=== PATIENT | male | born 1950 | race Caucasian/White ===

== ENCOUNTER 2017-08-16 12:40 | Outpatient (CLI) | payer MEDICARE ==
[2017-08-16 14:47] LABS: Mean Corpuscular HGB CONC 33.6 g/dL (32.0-36.0); Mean Corpuscular Volume 95.4 fl (80.0-94.0); Mean Platelet Volume 7.9 fL (7.4-10.4); Platelet Count 207 thou/uL (130-400); RBC Distribution Width 12.6 % (11.5-14.5); White Blood Cell (WBC) Count 10.6 thou/uL (4.8-10.8)
[2017-08-16 14:49] LABS: Bilirubin Negative (Negative); Blood, Urine Negative (Negative); Clarity CLEAR (Clear); Glucose, Urine (Dipstick) Negative (Negative); Leukocyte Negative (Negative); Nitrite Negative (Negative); Protein, Urine (Dipstick) Negative (Neg-Trace); Specific Gravity, Urine 1.025 (1.002-1.036); Urobilinogen 0.2 mg/dL (0.2-1.0); pH, Urine 5.5 (5.0-9.0)
[2017-08-16 14:52] LABS: Bacteria/HPF None Seen HPF (None Seen); Hyaline Casts/LPF 0-3 HYALINE CAST LPF (0-3 Hyaline); Squamous Epithelial None Seen HPF (0-3); WBC/HPF 0-3 HPF (0-3)
[2017-08-16 14:58] LABS: PTT 33.6 SEC (22.9-36.1); Prothrombin Time 13.3 SEC (12.0-14.7)
[2017-08-16 15:08] LABS: Anion Gap 14 mmol/L (10-20); BUN (Urea Nitrogen) 26 mg/dL (8.4-25.7); Calc. Creatinine Clearance 0 mL/min (70-130); Calcium 10.5 mg/dL (7.8-10.44); Carbon Dioxide 27 mmol/L (23-31); Chloride 102 mmol/L (98-107); Estimated GFR-MDRD 71; Glucose 86 mg/dL (80-115); Potassium 4.3 mmol/L (3.5-5.1); Sodium 139 mmol/L (136-145)
--- NOTE | 2017-08-16 15:37 | ULT ---
BILATERAL SCROTAL ULTRASOUND INCLUDING COLOR AND SPECTRAL DOPPLER IMAGIN08/16/17 HISTORY: 67-year-old male with left sided hydrocele. Right testis measures 4.7 x 2.6 x 3.8 cm. The left testis measures 5.1 x 3.4 x 4.1 cm. The epididymal regions are not seen. There is a very large left sided hydrocele incompletely seen because of its large size but measuring at least 9 cm in diameter. There is a small right sided hydrocele up to approximately 5 cm in length. No intratesticular mass. No evidence for testicular torsion. IMPRESSION: Very large left sided hydrocele. Smaller right sided hydrocele. No intratesticular mass or testicular torsion. POS: [facility]
--- NOTE | 2017-08-21 20:11 | EKG ---
Test Reason : Blood Pressure : / mmHG Vent. Rate : 074 BPM Atrial Rate : 074 BPM P-R Int : 160 ms QRS Dur : 092 ms QT Int : 364 ms P-R-T Axes : 068 082 035 degrees QTc Int : 404 ms Normal sinus rhythm Possible Anterior infarct , age undetermined Abnormal ECG When compared with ECG of 22-JUL-2013 09:49, No significant change was found Confirmed by BEAU MUNOZ (2) on 08/21/2017 8:11:21 PM Referred By: JAC Confirmed By:BEAU MUNOZ
== END 2017-08-16 12:41 | disposition home or self-care (01) ==
LOC: ULT 12:40
PROVIDERS: ATTEND Urology
DX: N43.3 Hydrocele, unspecified (principal); N44.00 Torsion of testis, unspecified
CPT/HCPCS: 76870; 80048; 81001; 85027; 85610; 85730; 87086; 93005; 93976; G0103; 93010

== ENCOUNTER 2017-08-23 08:20 | Day surgery (SDC) | payer MEDICARE ==
[2017-08-16 14:06] VITALS: BMI 25.1
[2017-08-23] MEDS ORDERED: CEFAZOLIN/Water 2 GM/20 ML SYRINGE ONE (09:45)
[2017-08-23] MEDS ORDERED: Bupivacaine 0.25% HCL 30 ML VIAL ONE ×2 (11:05→11:06)
[2017-08-23] MEDS ORDERED: Fentanyl 250 MCG/5 ML VIAL ONE ×2 (11:12→12:15)
[2017-08-23] MEDS ORDERED: HYDROmorphone 0.5 MG/0.5 ML SYRINGE ONE (12:15)
--- NOTE | 2017-08-23 13:29 | OP ---
DATE OF PROCEDURE: 08/23/2017 SERVICE: Urology. SURGEON: Iglesia Owens M.D. PREOPERATIVE DIAGNOSIS: Left hydrocele. POSTOPERATIVE DIAGNOSES: Left hydrocele and epididymal cyst. PROCEDURES PERFORMED: Left hydrocelectomy and spermatocelectomy. INDICATIONS FOR PROCEDURE: Mr. Calloway is a 67-year-old white male who presented to me with a signifi cant left-sided scrotal swelling. He has had a spermatocelectomy on the right. The left side has no w become significantly swollen and is bothering the patient, interfering with his daily activities. He would like this removed. An ultrasound done previously was negative. I have talked about the ris ks and benefits of hydrocelectomy and he agreed to proceed forward. DESCRIPTION OF PROCEDURE: After identification of armband and verification of consent, the patient w as brought back to the operating room where he underwent general anesthesia with an LMA. He was left in the supine position and prepped and draped in the usual sterile fashion. After appropriate timeo ut, a horizontal incision was made over the left hemiscrotum using a 15 blade. Dissection was maria esther d down with Bovie electrocautery and Metzenbaum scissors through dartos in the internal and external spermatic fascia to the level of the tunica vaginalis. Dissection was carried out along the hydrocel e sac with blunt dissection circumferentially around the hydrocele to allow for delivery of the hydro david through the scrotal incision. Once the hydrocele was delivered, the additional spermatic fascia s were swept back to allow for complete exposure of the hydrocele and cord. The hydrocele sac was th en opened on the anterior surface with release of approximately 400-500 mL of straw-colored fluid. T he interior constant did not demonstrate any abnormalities of the testicle or any other foreign subst ances within the hydrocele sac. After opening the hydrocele sac, there was apparent bulge still pres ent on the posterior side of the cord and testicle opposite the hydrocele. Upon closer inspection, t his appeared to be an epididymal cyst growing up the head of the epididymis. It was moderate in size and could potentially grow significantly larger in the future. Therefore, I elected to go ahead and remove this as well, so the patient would have maximum amount of drainage. The spermatocele was sig nificantly fused to the cord vessels, vas deferens and epididymis and I felt that attempting to disse ct the spermatocele may result in significant morbidity or loss of the testicle altogether due to dam age to the vascular structures. Therefore, I elected to just open the epididymal cyst in a similar f ashion of the hydrocele and this russell the edges for marsupialization and prevent recurrence. This w as done with a 15 blade with release of approximately 50 mL of straw-colored fluid. The edges were c auterized. The hydrocele sac was then excised in the Jaboulay fashion for complete removal of the hy drocele sac. Care was taken not to injure the epididymis, although the incision line was close to th e epididymis. There was not enough hydrocele sac left to russell the edges. Therefore, the edges were just sewn, shut for hemostasis using a 4-0 Vicryl in a running fashion. The epididymal leaflets of that were everted using a 2-0 Vicryl in an interrupted fashion. Hemostasis was then performed on the inside of the scrotal sac along with the testis and spermatic cord until the entire surgical field w as completely dry, a small incision was made on the inferior aspect of the scrotum for passage of a q uarter-inch Karissa drain, which was secured with nylon. The wound was copiously irrigated with sali ne and then once the fluid evacuated, the testicle was put back into the scrotal sac. A cord block w as performed with 0.25% Marcaine plain and the dartos and spermatic fascia was then closed using a 2- 0 Vicryl in a running fashion. The skin was closed with a 4-0 Monocryl and Dermabond applied. The i ncision was infiltrated with 0.25% Marcaine plain as well. Once the Dermabond was dry, scrotal fluff s and a jockstrap was applied. The patient was then awakened and taken to PACU for recovery in stabl e condition. COMPLICATIONS: None. ESTIMATED BLOOD LOSS: Minimal. RETAINED TUBES AND DRAINS: A quarter-inch Karissa drain in the left. SPECIMENS: Hydrocele sac and epididymal cyst sac. DISPOSITION: The patient will be discharged home and follow up with me in 1 week for drain removal.
== END 2017-08-23 17:50 | disposition home or self-care (01) ==
LOC: SDC 08:20
PROVIDERS: ATTEND Urology
PROC: 0VBG0ZZ Excision of Left Spermatic Cord, Open Approach (ICD-10-PCS; principal; 2017-08-23)
PROC: 0VBK0ZZ Excision of Left Epididymis, Open Approach (ICD-10-PCS; 2017-08-23)
DX: N43.3 Hydrocele, unspecified (principal); N50.3 Cyst of epididymis; K21.9 Gastro-esophageal reflux disease without esophagitis; M19.90 Unspecified osteoarthritis, unspecified site; F17.210 Nicotine dependence, cigarettes, uncomplicated; Z79.82 Long term (current) use of aspirin; Z79.899 Other long term (current) drug therapy; Z91.030 Bee allergy status; Z98.890 Other specified postprocedural states
CPT/HCPCS: 88302; 88304; J1170; J3010; S0020

== ENCOUNTER 2019-02-09 12:47 | Inpatient (IN) | payer MEDICARE ==
[~2019-02-09 12:47] MED LIST: ISOVUE-370 76%-LOCM 1 ML ONE
--- NOTE | 2019-02-09 13:06 | CT ---
Exam: CT brain PROVIDED CLINICAL HISTORY: Confusion COMPARISON: None FINDINGS: The ventricular system is normal in size and morphology. No evidence for intracranial hemorrhage or mass effect. The extracranial soft tissues and osseous structures demonstrate no evidence for an acute abnormality. Bilateral MCA region aneurysm clips are demonstrated with associated craniotomy ch lakhwinder. Encephalomalacia involving portions of the right inferior frontal and left basal ganglia regions. IMPRESSION: No evidence for intracranial hemorrhage or mass effect. Findings discussed with the emergency departm ent 1:03 PM 02/09/2019.
[2019-02-09 13:08] LABS: #Basophils 0.1 thou/uL (0.0-0.2); #Eosinphils 0.2 thou/uL (0.0-0.7); #Lymphocytes 2.5 thou/uL (1.20-3.40); #Monocytes 0.7 thou/uL (0.11-0.59); #Neutrophils 5.2 thou/uL (1.40-6.50); %Basophils 0.9 % (0.0-1.0); %Lymphocytes 29.1 % (21.0-51.0); %Monocytes 7.9 % (0.0-10.0); Hemoglobin 16.2 g/dL (14.0-18.0); Mean Corpuscular HGB CONC 35.6 g/dL (32.0-36.0); Mean Corpuscular Hemoglobin 33.3 pg (27.0-31.0); Mean Corpuscular Volume 93.5 fL (78.0-98.0); Mean Platelet Volume 7.3 fL (7.4-10.4); Platelet Count 168 thou/uL (130-400); RBC Distribution Width 12.5 % (11.5-14.5); Red Blood Cell (RBC) Count 4.85 mill/uL (4.70-6.10); White Blood Cell (WBC) Count 8.6 thou/uL (4.8-10.8)
[2019-02-09 13:32] LABS: ALT (SGPT) 11 U/L (8-55); AST (SGOT) 14 U/L (5-34); Albumin 4.3 g/dL (3.4-4.8); Alkaline Phosphatase 69 U/L (40-150); Anion Gap 13 mmol/L (10-20); BUN (Urea Nitrogen) 14 mg/dL (8.4-25.7); Bilirubin, Total 0.4 mg/dL (0.2-1.2); Calc. Creatinine Clearance 0 mL/min (70-130); Calcium 9.7 mg/dL (7.8-10.44); Carbon Dioxide 24 mmol/L (23-31); Chloride 104 mmol/L (98-107); Estimated GFR-MDRD 72; Globulin 2.6 g/dL (2.4-3.5); Glucose 102 mg/dL (80-115); Potassium 3.8 mmol/L (3.5-5.1); Protein, Total 6.9 g/dL (5.8-8.1); Sodium 137 mmol/L (136-145)
--- NOTE | 2019-02-09 14:00 | CT ---
EXAM: CT angiogram great vessels neck with IV contrast and three-dimensional reconstructions CT angiogram brain with IV contrast and three-dimensional reconstructions PROVIDED CLINICAL HISTORY: Altered mental status COMPARISON: None FINDINGS: There is a normal three-vessel configuration of the great vessels at the arch. The common carotid, internal carotid, clavian and vertebral arteries demonstrate no evidence for sign ificant stenosis. There is no evidence for focal vessel stenosis or branch occlusion involving the intracranial circula tion, with limitations in evaluating both middle cerebral arteries due to beam hardening artifact from bilateral aneurysm clips. There is an approximately 5 mm oval focus of contrast immediately cran ial to the right CCA medial aneurysm clip spacious for residual aneurysm. Cavernous carotid calcification. IMPRESSION: 1. No evidence for significant great vessel neck stenosis. 2. Limited evaluation due to beam hardening artifact from aneurysm clips. Suspected residual 5 mm rig ht MCA aneurysm.
[2019-02-09 14:15] LABS: PTT 32.6 SEC (22.9-36.1); Prothrombin Time 13.6 SEC (12.0-14.7)
[2019-02-09] MEDS ORDERED: Acetaminophen 500 MG TAB ONE (16:15)
[2019-02-09] MEDS ORDERED: Aspirin Chewable 81 MG TAB ONE (16:52)
[2019-02-09 17:07] LABS: Bacteria/HPF None Seen HPF (None Seen); Bilirubin Negative (Negative); Blood, Urine Trace (Negative); Clarity Clear (Clear); Glucose, Urine (Dipstick) Normal (Negative); Leukocyte Negative Leu/uL (Negative); Nitrite Negative (Negative); Protein, Urine (Dipstick) Negative (Neg-Trace); RBC/HPF 0-3 HPF (0-3); Squamous Epithelial 0-3 HPF (0-3); Urobilinogen Normal mg/dL (Less than 2); WBC/HPF 0-3 HPF (0-3)
[2019-02-09 17:14] LABS: Amphetamine Not Detected (NotDetected); Barbiturates Screen Not Detected (NotDetected); Benzodiazepine Screen Not Detected (NotDetected); Cocaine Metabolite Screen Not Detected (NotDetected); Medtox Control Line Valid? VALID (VALID); Medtox Reader # READER 1; Methadone Not Detected (NotDetected); Methamphetamine Not Detected (NotDetected); Opiate Screen Not Detected (NotDetected); Oxycodone Screen Not Detected (NotDetected); Phencyclidine (PCP) Not Detected (NotDetected); THC/Cannabinoid Screen Not Detected (NotDetected); Tricyclic Screen Not Detected (NotDetected)
[2019-02-09] MEDS ORDERED: Acetaminophen 325 MG TAB PO PRN (18:39)
[2019-02-09] MEDS ORDERED: Ondansetron ODT 4 MG TAB SL PRN (18:39)
[2019-02-09] MEDS ORDERED: Ondansetron PF 4 MG/2 ML Vial IVP PRN (18:39)
[2019-02-09] MEDS ORDERED: hydrALAZINE 20 MG/ML VIAL SLOW IVP PRN (18:52)
--- NOTE | 2019-02-09 19:36 | RAD ---
EXAM: Chest 2 views: HISTORY: Chest pain; greater than 100 year smoking history COMPARISON: 07/22/2013 FINDINGS: There is a normal-sized cardiomediastinal silhouette. There is no evidence of consolidation, mass, or pleural effusion. The bones are unremarkable. IMPRESSION: No evidence of acute cardiopulmonary disease
[2019-02-09] MEDS ORDERED: Nicotine 21 MG PATCH TD SCH (20:00)
[2019-02-09] MEDS: Famotidine 20 MG TAB PO SCH (20:57)
[2019-02-09] MEDS ORDERED: Atorvastatin Calcium 40 MG TAB PO SCH (21:00)
--- NOTE | 2019-02-09 23:01 | HP ---
HISTORY OF PRESENT ILLNESS: This is a 68-year-old white male, who presents with an altered mental status. The patient in 1997 developed an altered mental status. He was taken to [facility] in [place] and Dr. Castro placed an aneurysmal clip. That same year, it was discovered that he had a similar aneurysm on the other side and an additional clip was placed there. The patient states for the past 40 years, he has had occasional what he calls blind spots. When he looks at a stop sign, at times he could only see the P. This occurs approximately 1 time per year. Today around noon, he was at the [employer] through when he suddenly became hot. His noticed him having difficulty talking. His left face appeared flat. He could not talk clearly. He also had difficulty finding words. He then developed a blind spot, which eventually resolved spontaneously. There was no nausea or vomiting. He did have a headache. His then brought him immediately to the ER. CT scanning revealed no acute findings. PAST MEDICAL HISTORY: Includes bilateral middle cerebral artery aneurysm status post [place] [address] Castro, tobacco history since the age of 13, giving him a 110 year pack history. PAST SURGICAL HISTORY: Include aneurysm clip as above, knee surgery x 3 on the right with eventual right total knee replacement, recent hydrocelectomy and spermatocelectomy, and right ear surgery. MEDICATIONS: Excedrin p.r.n. Otherwise no other medications. ALLERGIES: NONE. FAMILY HISTORY: Father with heart disease, who at the age of 67. No family history of any cancers or diabetes. SOCIAL HISTORY: The patient is . They have 2 daughters. They have 10 grand kids. He has a 2-pack per day tobacco history since the age of 13 given him 110 year pack history. He drinks 3-4 beers daily. He is retired [employer] employee. REVIEW OF SYSTEMS: As above. PHYSICAL EXAMINATION: VITAL SIGNS: Initial blood pressure was 171/97, 99% saturations, temperature 97.5, pulse 67, and respirations 14. GENERAL: The patient in no acute distress. HEENT: Pupils equal, reactive. Extraocular movements intact. TM, nose and throat clear. NECK: Supple. HEART: Regular rate and rhythm. LUNGS: Clear. ABDOMEN: Soft, nontender. EXTREMITIES: With no edema. NEURO: At this time, his neuro exam appears entirely intact. He states he is having trouble finding words, but he is talking fluently. Cranial nerves 2 through 12 appear intact. Motor and sensory intact. Normal rapid alternating movements. Normal [id number]. Peripheral vision appears intact in all 4 quadrants. LABORATORY DATA: White count 8.6, H and H 16 and 45. Electrolytes normal. Creatinine 1.03. Troponin less than 0.010. UA negative. Drug screen negative. ASSESSMENT: 1. Altered mental status, appears to return to baseline. 2. Transient ischemic attack. 3. Expressive aphasia, resolved. 4. 110 years tobacco history. 5. Status post bilateral middle cerebral artery aneurysmal clips by Dr. Castro in 1997. 6. Daily alcohol use, 3-4 beers per day. PLAN: 1. Consult Neurology. 2. Begin aspirin and Plavix. 3. Will order an MRI if it is okay with Neurology. The clips may be a contraindication to doing the MRI. 4. Informed the and patient that his risk of a major stroke is very high if he continues to smoke 2 packs per day. 5. Lipid count in the a.m. 6. Echocardiogram. 7. Dr. Ventura Rios to follow in the a.m. Job ID: [id number]
[2019-02-10 04:58] LABS: #Basophils 0.1 thou/uL (0.0-0.2); #Eosinphils 0.3 thou/uL (0.0-0.7); #Lymphocytes 2.3 thou/uL (1.20-3.40); #Monocytes 0.7 thou/uL (0.11-0.59); #Neutrophils 3.3 thou/uL (1.40-6.50); %Basophils 0.9 % (0.0-1.0); %Eosinophils 4.2 % (0.0-10.0); %Lymphocytes 34.5 % (21.0-51.0); %Neutrophils 50.4 % (42.0-75.0); Hemoglobin 15.3 g/dL (14.0-18.0); Mean Corpuscular HGB CONC 33.6 g/dL (32.0-36.0); Mean Corpuscular Hemoglobin 31.5 pg (27.0-31.0); Mean Corpuscular Volume 93.7 fL (78.0-98.0); Mean Platelet Volume 4.9 fL (7.4-10.4); Platelet Count 153 thou/uL (130-400); RBC Distribution Width 12.4 % (11.5-14.5); Red Blood Cell (RBC) Count 4.86 mill/uL (4.70-6.10); White Blood Cell (WBC) Count 6.5 thou/uL (4.8-10.8)
[2019-02-10 05:03] VITALS: BMI 24.7
[2019-02-10 05:04] LABS: Anion Gap 9 mmol/L (10-20); BUN (Urea Nitrogen) 12 mg/dL (8.4-25.7); Calc. Creatinine Clearance 80 mL/min (70-130); Calcium 9.6 mg/dL (7.8-10.44); Carbon Dioxide 28 mmol/L (23-31); Cardiac Risk 4.4 (Less than 4.5); Chloride 105 mmol/L (98-107); Cholesterol 158 mg/dl (< 200 Desired); Estimated GFR-MDRD 75; Glucose 91 mg/dL (80-115); HDL Cholesterol 36 mg/dL (>60 Neg Risk); LDL Cholesterol, Calculated 92 mg/dL; Sodium 138 mmol/L (136-145); Triglycerides 152 mg/dL (Less than 150)
[2019-02-10] MEDS: Famotidine 20 MG TAB PO SCH (08:14)
[2019-02-10] MEDS ORDERED: Clopidogrel Bisulfate 75 MG TAB PO SCH (09:00)
[2019-02-10] MEDS ORDERED: Aspirin 325 mg Enteric Coated Tablet PO SCH (09:00)
--- NOTE | 2019-02-10 10:11 | ULT ---
Carotid arterial Doppler ultrasound: 02/10/2019 COMPARISON: None HISTORY: Transient ischemic attack TECHNIQUE: Multiplanar grayscale sonographic imaging of the arterial structures of the neck obtained with color flow and spectral analysis FINDINGS: Antegrade blood flow and normal arterial waveforms are documented within the carotid and ve rtebral system bilaterally. Peak systolic velocity is 68 cm/s within the right common carotid artery, 57 cm/s within the right in ternal carotid artery, and 90 cm/s within the right external carotid artery. Peak systolic velocity is 72 cm/s within the left common carotid artery, 72 cm/s within the left inte rnal carotid artery, and 45 cm/s within the left external carotid artery. Internal carotid artery/common carotid artery ratio is 0.8 on the right and 1.0 on the left. IMPRESSION: No hemodynamically significant stenosis on the basis of sonographic velocity criteria.
[2019-02-10] MEDS ORDERED: Amlodipine 5 MG TAB PO SCH (13:30)
[2019-02-10] MEDS ORDERED: Labetalol HCl 100 MG/20 ML VIAL SLOW IVP PRN (15:54)
[2019-02-10 16:35] VITALS: TEMP 97.4
[2019-02-10] MEDS ORDERED: cloNIDine 0.1 MG TAB PO PRN (17:18)
[2019-02-10 17:43] VITALS: BP 188/107
--- NOTE | 2019-02-11 00:57 | PRG ---
DATE OF SERVICE: 02/10/2019 SUBJECTIVE: The patient is doing well. He has had a recent history of possible TIA, which he was admitted for. Yesterday, he underwent evaluation with CT scan of brain and CT scan of the elim ira of [place]. He has also undergone echocardiogram as well as carotid Doppler ultrasound, all of which have been normal and negative. Nurses reports his blood pressure are a little bit difficult to control today. He has been started on amlodipine. He reports no chest pain, no shortness of breath. Reports all symptoms of TIA, now resolved. This has been confirmed by his . OBJECTIVE: VITAL SIGNS: BP 160/103, temperature 97.4, O2 saturation 95% on room air. GENERAL: He is alert and active, in no distress. NEUROLOGIC: He is alert and oriented x3. Cranial nerves 2 through 12 are intact. Speech is fluent without dysphagia or other dysarthria is noted. LUNGS: Clear. HEART: Reveals a regular rate and rhythm. No murmurs, gallops, or rubs. CT scan of brain normal. CT scan of elim ira of [place] normal. Carotid Doppler ultrasound is normal. Echocardiogram is pending. IMPRESSION: Transient ischemic attack with hypertension. PLAN: The patient can be discharged safely home today with immediate follow up with me in 24 to 48 hours. He will be discharged home on amlodipine 5 mg daily, atorvastatin 10 mg daily, Plavix 75 mg daily, and clonidine 0.1 mg daily. Discharge note as follows. Discharge medicines were noted above. The patient is doing well post hospitalization except for elevated blood pressure. It is noted at the time of discharge, his LDL cholesterol was 92. We will further enhance cholesterol management by adding atorvastatin 10 mg daily. The patient was reminded he will need to stop smoking. He will follow up with me in 24 to 48 hours. Job ID: [id number]
[2019-02-11] MEDS ORDERED: Amlodipine 5 MG TAB PO SCH (09:00)
== END 2019-02-10 19:05 | disposition home or self-care (01) | DRG 69 ==
LOC: ERS 12:47 → 2SE 18:30
PROVIDERS: ADMIT Family Medicine; ATTEND Family Medicine
DX: G45.9 Transient cerebral ischemic attack, unspecified (principal); R47.01 Aphasia; I10 Essential (primary) hypertension; F17.210 Nicotine dependence, cigarettes, uncomplicated; Z96.651 Presence of right artificial knee joint; H54.7 Unspecified visual loss; R47.1 Dysarthria and anarthria
CPT/HCPCS: 36415; 70450; 70496; 70498; 71046; 80048; 80053; 80061; 80306; 81003; 81015; 84484; 85025; 85610; 85730; 93005; 93306; 93880; Q9966

== ENCOUNTER 2022-08-21 23:09 | Inpatient (IN) | payer MEDICARE, SELFPAY ==
[2022-08-21] MEDS ORDERED: Ondansetron PF 4 MG/2 ML Vial ONE (23:57)
[2022-08-22 00:03] LABS: Hemoglobin 4.3 g/dL (14.0-18.0); Mean Corpuscular HGB CONC 35.4 g/dL (32.0-36.0); Mean Corpuscular Hemoglobin 32.9 pg (27.0-31.0); Mean Corpuscular Volume 92.8 fl (78.0-98.0); Mean Platelet Volume 7.6 fL (7.4-10.4); Platelet Count 179 10x3/uL (130-400); Red Blood Cell (RBC) Count 1.32 mill/uL (4.70-6.10); White Blood Cell (WBC) Count 27.6 10x3/uL (4.8-10.8)
[2022-08-22 00:12] LABS: INR-International Normal Ratio 1.3; Prothrombin Time 16.4 sec (12.0-14.7)
[2022-08-22 00:15] LABS: D-Dimer Test 0.42 *mcg/mL (0.27-0.43)
[2022-08-22 00:20] LABS: Acetaminophen Less than 10.0 mcg/mL (10.0-30.0); Alcohol Less than 10 mg/dL (Less than 10); Salicylate Less than 8.0 mg/dL (15.0-30.0)
[2022-08-22 00:22] LABS: ALT (SGPT) 15 U/L (8-55); AST (SGOT) 17 U/L (5-34); Albumin 2.8 g/dL (3.4-4.8); Alkaline Phosphatase 29 U/L (40-110); Anion Gap 18 mmol/L (10-20); BUN (Urea Nitrogen) 67 mg/dL (8.4-25.7); Bilirubin, Total 0.2 mg/dL (0.2-1.2); CK (CPK) 102 U/L (30-200); Calc. Creatinine Clearance 0 mL/min (70-130); Calcium 9.3 mg/dL (7.8-10.44); Carbon Dioxide 22 mmol/L (23-31); Chloride 105 mmol/L (98-107); Estimated GFR 59; Globulin 1.7 g/dL (2.4-3.5); Glucose 148 mg/dL (83-110); Lipase 8 U/L (8-78); Potassium 3.7 mmol/L (3.5-5.1); Protein, Total 4.5 g/dL (5.8-8.1); Sodium 141 mmol/L (136-145)
[2022-08-22 00:22] LABS: Band 10 % (5-11); Eosinophils 1 % (0-10); Large Platelets SLIGHT; Lymphocytes 12 % (21-51); MDiff Complete? YES; Metamyelocyte 1 % (0-0); Monocytes 7 % (0-10); Myelocyte 2 % (0-0); Neutrophil 67 % (42-75); Nucleated RBC 4 % (0); Platelet Morphology Comment Appears Adequate; Polychromasia MODERATE = 3-4 cells (100X) (0-2/hpf); Reflex for Review?? YES
[2022-08-22] MEDS ORDERED: Pantoprazole 40 MG VIAL ONE (00:22)
[2022-08-22] MEDS ORDERED: Cefepime 2 GM VIAL ONE (00:22)
[2022-08-22] MEDS ORDERED: Octreotide Acetate 50 MCG in Sodium Chloride 0.9% 50 ML IVPB SCH (00:30)
[2022-08-22 00:55] LABS: CKMB 2.7 ng/mL (0-6.6)
[2022-08-22 01:17] LABS: Bilirubin Negative (Negative); Blood, Urine Negative (Negative); Clarity Clear (Clear); Glucose, Urine (Dipstick) Normal (Negative); Ketone, Urine Negative (Negative); Leukocyte Negative Leu/uL (Negative); Nitrite Negative (Negative); Protein, Urine (Dipstick) Negative (Neg-Trace); Urobilinogen Normal mg/dL (Less than 2)
[2022-08-22 01:25] LABS: Amphetamine Not Detected (NotDetected); Barbiturates Screen Not Detected (NotDetected); Benzodiazepine Screen Not Detected (NotDetected); Cocaine Metabolite Screen Not Detected (NotDetected); Methadone Not Detected (NotDetected); Methamphetamine Not Detected (NotDetected); Opiate Screen Not Detected (NotDetected); Oxycodone Screen Not Detected (NotDetected); Phencyclidine (PCP) Not Detected (NotDetected); THC/Cannabinoid Screen Not Detected (NotDetected); Tricyclic Screen Not Detected (NotDetected)
[2022-08-22] MEDS ORDERED: Vancomycin 1 GM/200 ML (FROZEN) BAG ONE (02:20)
[2022-08-22] MEDS ORDERED: Ondansetron PF 4 MG/2 ML Vial IVP PRN (02:40)
[2022-08-22] MEDS ORDERED: Ondansetron ODT 4 MG TAB PO PRN (02:40)
[2022-08-22] MEDS ORDERED: Acetaminophen 650 MG Suppository PR PRN (02:40)
[2022-08-22] MEDS ORDERED: Octreotide Acetate 1,250 MCG in Sodium Chloride 0.9% 250 ML 250 ML IVPB SCH (02:45)
[2022-08-22 03:23] LABS: Lactic Acid 5.1 mmol/L (0.5-2.2); Troponin I 0.078 ng/mL (< 0.028)
[2022-08-22 04:13] VITALS: BMI 25.9
[2022-08-22 06:27] LABS: Troponin I 0.101 ng/mL (< 0.028)
[2022-08-22 07:09] LABS: Hemoglobin 6.2 g/dL (14.0-18.0)
[2022-08-22] MEDS: Pantoprazole 80 MG in Sodium Chloride 0.9% 100 ML IVPB SCH ×2 (08:02→17:52)
[2022-08-22] MEDS ORDERED: Electrolyte Replacement Protocol 1 EACH FS SCH (08:15)
[2022-08-22 09:15] LABS: Magnesium 2.1 mg/dL (1.6-2.6)
[2022-08-22] MEDS ORDERED: Iopamidol-370 76% 500 ML MDV (1 ML CHARGE) ONE (09:22)
[2022-08-22] MEDS ORDERED: cloNIDine 0.1 MG TAB PO PRN (16:46)
[2022-08-22 18:55] LABS: Hemoglobin 7.9 g/dL (14.0-18.0); Platelet Count 105 10x3/uL (130-400)
[2022-08-22] MEDS: Acetaminophen 325 MG TAB PO PRN (20:51)
[2022-08-22] MEDS: Atorvastatin Calcium 10 MG TAB PO SCH (20:52)
[2022-08-22] MEDS ORDERED: Amlodipine 5 MG TAB PO SCH (21:00)
[2022-08-22] MEDS ORDERED: D5 1/2 NS w/20 mEq KCL 1,000 ML IV SCH (23:55)
[2022-08-23] MEDS ORDERED: Octreotide Acetate 1,250 MCG in Sodium Chloride 0.9% 250 ML 250 ML IVPB SCH (01:30)
[2022-08-23] MEDS: Pantoprazole 80 MG in Sodium Chloride 0.9% 100 ML IVPB SCH (02:18)
[2022-08-23 05:53] LABS: Lactic Acid 1.3 mmol/L (0.5-2.2)
[2022-08-23 05:57] LABS: Band 13 % (5-11); Hemoglobin 7.5 g/dL (14.0-18.0); Hypochromia SLIGHT = 6-15 cells (100X) (0-5/hpf); Lymphocytes 29 % (21-51); MDiff Complete? YES; Mean Corpuscular HGB CONC 35.8 g/dL (32.0-36.0); Mean Corpuscular Hemoglobin 32.7 pg (27.0-31.0); Mean Corpuscular Volume 91.3 fl (78.0-98.0); Monocytes 7 % (0-10); Neutrophil 51 % (42-75); Nucleated RBC 1 % (0); Platelet Count 100 10x3/uL (130-400); Platelet Morphology Comment Appears Decreased; RBC Distribution Width 13.6 % (11.5-14.5); Red Blood Cell (RBC) Count 2.29 mill/uL (4.70-6.10); White Blood Cell (WBC) Count 10.2 10x3/uL (4.8-10.8)
[2022-08-23 06:06] LABS: ALT (SGPT) 15 U/L (8-55); AST (SGOT) 25 U/L (5-34); Alkaline Phosphatase 35 U/L (40-110); Anion Gap 9 mmol/L (10-20); BUN (Urea Nitrogen) 30 mg/dL (8.4-25.7); Bilirubin, Total 0.5 mg/dL (0.2-1.2); Calc. Creatinine Clearance 93 mL/min (70-130); Calcium 7.9 mg/dL (7.8-10.44); Carbon Dioxide 27 mmol/L (23-31); Chloride 108 mmol/L (98-107); Estimated GFR 93; Globulin 1.7 g/dL (2.4-3.5); Glucose 127 mg/dL (83-110); Potassium 3.4 mmol/L (3.5-5.1); Protein, Total 4.7 g/dL (5.8-8.1); Sodium 141 mmol/L (136-145)
[2022-08-23 06:21] LABS: CKMB 3.4 ng/mL (0-6.6)
[2022-08-23] MEDS ORDERED: Pantoprazole 80 MG, Admixture Fee 1 EACH in Sodium Chloride 0.9% 100 ML IVPB SCH (06:45)
[2022-08-23] MEDS ORDERED: Metoprolol Tartrate 25 MG TAB PO SCH (09:00)
[2022-08-23] MEDS ORDERED: PROPOFOL 200 MG/20 ML VIAL ONE (10:40)
[2022-08-23] MEDS ORDERED: Lidocaine 1% PF 5 ML VIAL ONE (10:40)
[2022-08-23] MEDS: Metoprolol Tartrate 25 MG TAB PO SCH ×2 (12:28→20:07)
[2022-08-23] MEDS ORDERED: Potassium Bicarbonate/Cit Ac 20 MEQ TAB PO SCH (13:00)
[2022-08-23] MEDS: Acetaminophen 325 MG TAB PO PRN ×2 (14:31→22:31)
[2022-08-23] MEDS: Thiamine 100 MG TAB PO SCH (20:06)
[2022-08-23] MEDS: Pantoprazole 40 MG VIAL IVP SCH (20:06)
[2022-08-23] MEDS: Folic Acid 1 MG TAB PO SCH (20:06)
[2022-08-23] MEDS: Cyanocobalamin (Vitamin B-12) 1,000 MCG TAB PO SCH (20:06)
[2022-08-23] MEDS: Multivit, Therapeutic 1 TAB PO SCH (20:07)
[2022-08-23] MEDS: Atorvastatin Calcium 10 MG TAB PO SCH (20:07)
[2022-08-24 04:17] LABS: Anion Gap 8 mmol/L (10-20); BUN (Urea Nitrogen) 21 mg/dL (8.4-25.7); Calc. Creatinine Clearance 103 mL/min (70-130); Calcium 7.5 mg/dL (7.8-10.44); Carbon Dioxide 29 mmol/L (23-31); Chloride 106 mmol/L (98-107); Estimated GFR 96; Glucose 109 mg/dL (83-110); Potassium 3.5 mmol/L (3.5-5.1); Sodium 139 mmol/L (136-145)
[2022-08-24 04:40] LABS: Band 3 % (5-11); Eosinophils 1 % (0-10); Hemoglobin 7.1 g/dL (14.0-18.0); Lymphocytes 21 % (21-51); MDiff Complete? YES; Mean Corpuscular HGB CONC 34.9 g/dL (32.0-36.0); Mean Corpuscular Hemoglobin 32.4 pg (27.0-31.0); Mean Platelet Volume 7.9 fL (7.4-10.4); Monocytes 10 % (0-10); Myelocyte 2 % (0-0); Neutrophil 62 % (42-75); Nucleated RBC 3 % (0); Platelet Count 89 10x3/uL (130-400); Platelet Morphology Comment Appears Decreased; RBC Distribution Width 13.6 % (11.5-14.5); RBC Morphology Normal; White Blood Cell (WBC) Count 8.2 10x3/uL (4.8-10.8)
[2022-08-24] MEDS: Acetaminophen 325 MG TAB PO PRN ×2 (05:20→12:39)
[2022-08-24] MEDS ORDERED: Potassium Bicarbonate/Cit Ac 20 MEQ TAB PO SCH (08:45)
[2022-08-24] MEDS: Metoprolol Tartrate 25 MG TAB PO SCH ×2 (09:33→20:25)
[2022-08-24] MEDS: Pantoprazole 40 MG VIAL IVP SCH ×2 (09:34→20:25)
[2022-08-24 13:46] LABS: Hemoglobin 7.4 g/dL (14.0-18.0); Platelet Count 90 10x3/uL (130-400)
[2022-08-24] MEDS ORDERED: GoLYTELY 4,000 ml Bottle PO SCH (15:00)
[2022-08-24] MEDS: Multivit, Therapeutic 1 TAB PO SCH (20:24)
[2022-08-24] MEDS: Cyanocobalamin (Vitamin B-12) 1,000 MCG TAB PO SCH (20:24)
[2022-08-24] MEDS: Folic Acid 1 MG TAB PO SCH (20:24)
[2022-08-24] MEDS: Atorvastatin Calcium 10 MG TAB PO SCH (20:25)
[2022-08-24] MEDS: Thiamine 100 MG TAB PO SCH (20:30)
[2022-08-25] MEDS: Acetaminophen 325 MG TAB PO PRN (01:10)
[2022-08-25 01:55] LABS: Hemoglobin 7.2 g/dL (14.0-18.0); Mean Corpuscular HGB CONC 34.8 g/dL (32.0-36.0); Mean Corpuscular Hemoglobin 32.6 pg (27.0-31.0); Mean Corpuscular Volume 93.5 fl (78.0-98.0); Mean Platelet Volume 7.8 fL (7.4-10.4); Platelet Count 92 10x3/uL (130-400)
[2022-08-25 02:16] LABS: ALT (SGPT) 13 U/L (8-55); AST (SGOT) 22 U/L (5-34); Albumin 2.7 g/dL (3.4-4.8); Alkaline Phosphatase 48 U/L (40-110); Anion Gap 8 mmol/L (10-20); BUN (Urea Nitrogen) 15 mg/dL (8.4-25.7); Band 6 % (5-11); Bilirubin, Total 0.6 mg/dL (0.2-1.2); Calc. Creatinine Clearance 106 mL/min (70-130); Calcium 7.7 mg/dL (7.8-10.44); Carbon Dioxide 26 mmol/L (23-31); Chloride 106 mmol/L (98-107); Eosinophils 1 % (0-10); Estimated GFR 97; Globulin 1.9 g/dL (2.4-3.5); Glucose 100 mg/dL (83-110); Lymphocytes 14 % (21-51); MDiff Complete? YES; Magnesium 2.6 mg/dL (1.6-2.6); Monocytes 10 % (0-10); Myelocyte 4 % (0-0); Neutrophil 65 % (42-75); Nucleated RBC 2 % (0); Platelet Morphology Comment Appears Decreased; Polychromasia SLIGHT = 2-3 cells (100X) (0-2/hpf); Potassium 3.4 mmol/L (3.5-5.1); Protein, Total 4.6 g/dL (5.8-8.1); Sodium 137 mmol/L (136-145)
[2022-08-25] MEDS ORDERED: Potassium Bicarbonate/Cit Ac 20 MEQ TAB PO SCH ×2 (07:00→17:00)
[2022-08-25] MEDS ORDERED: Potassium Chloride 20 MEQ in Premix Bag 1 BAG IVPB SCH (08:30)
[2022-08-25] MEDS ORDERED: Lorazepam 0.5 MG TAB PO PRN (09:04)
[2022-08-25] MEDS ORDERED: Electrolyte Replacement Protocol 1 EACH FS SCH (09:15)
[2022-08-25] MEDS ORDERED: Lidocaine 1% PF 5 ML VIAL ONE (09:48)
[2022-08-25] MEDS ORDERED: PROPOFOL 200 MG/20 ML VIAL ONE (09:48)
[2022-08-25] MEDS: pyridOXINE 50 MG (B6) TAB PO SCH (12:02)
[2022-08-25] MEDS: Pantoprazole 40 MG VIAL IVP SCH ×2 (12:03→20:10)
[2022-08-25] MEDS: Thiamine HCl 200 MG/2 ML VIAL SLOW IVP SCH (12:31)
[2022-08-25] MEDS: Metoprolol Tartrate 25 MG TAB PO SCH ×2 (15:19→20:09)
[2022-08-25] MEDS: Cyanocobalamin (Vitamin B-12) 1,000 MCG TAB PO SCH (20:09)
[2022-08-25] MEDS: Multivit, Therapeutic 1 TAB PO SCH (20:09)
[2022-08-25] MEDS: Folic Acid 1 MG TAB PO SCH (20:09)
[2022-08-25] MEDS: Atorvastatin Calcium 10 MG TAB PO SCH (20:09)
[2022-08-26] MEDS: Acetaminophen 325 MG TAB PO PRN (00:24)
[2022-08-26 06:12] LABS: Reticulocyte Count 10.8 % (0.5-1.5)
[2022-08-26 06:13] LABS: #Eosinphils 0.2 thou/uL (0.0-0.7); #Lymphocytes 1.3 thou/uL (1.20-3.40); #Monocytes 0.9 thou/uL (0.11-0.59); #Neutrophils 5.5 thou/uL (1.40-6.50); %Basophils 0.3 % (0.0-1.0); %Lymphocytes 16.6 % (21.0-51.0); %Monocytes 11.3 % (0.0-10.0); %Neutrophils 68.8 % (42.0-75.0); Mean Corpuscular Hemoglobin 32.4 pg (27.0-31.0); Mean Corpuscular Volume 95.3 fl (78.0-98.0); Mean Platelet Volume 7.6 fL (7.4-10.4); Platelet Count 113 10x3/uL (130-400); RBC Distribution Width 14.1 % (11.5-14.5); Red Blood Cell (RBC) Count 2.18 mill/uL (4.70-6.10)
[2022-08-26 06:23] LABS: Anion Gap 9 mmol/L (10-20); BUN (Urea Nitrogen) 12 mg/dL (8.4-25.7); Calc. Creatinine Clearance 114 mL/min (70-130); Calcium 7.8 mg/dL (7.8-10.44); Carbon Dioxide 25 mmol/L (23-31); Chloride 106 mmol/L (98-107); Estimated GFR 99; Glucose 95 mg/dL (83-110); Potassium 3.4 mmol/L (3.5-5.1); Sodium 137 mmol/L (136-145)
[2022-08-26] MEDS ORDERED: Potassium Chloride 20 MEQ TAB PO SCH (08:00)
[2022-08-26] MEDS: Metoprolol Tartrate 25 MG TAB PO SCH ×2 (08:39→21:06)
[2022-08-26] MEDS: Pantoprazole 40 MG VIAL IVP SCH ×2 (08:40→21:07)
[2022-08-26] MEDS: pyridOXINE 50 MG (B6) TAB PO SCH (08:41)
[2022-08-26] MEDS: Thiamine HCl 200 MG/2 ML VIAL SLOW IVP SCH (10:32)
[2022-08-26] MEDS: Atorvastatin Calcium 10 MG TAB PO SCH (21:05)
[2022-08-26] MEDS: Folic Acid 1 MG TAB PO SCH (21:05)
[2022-08-26] MEDS: Multivit, Therapeutic 1 TAB PO SCH (21:05)
[2022-08-26] MEDS: Cyanocobalamin (Vitamin B-12) 1,000 MCG TAB PO SCH (21:06)
[2022-08-27 05:05] LABS: #Eosinphils 0.3 thou/uL (0.0-0.7); #Lymphocytes 1.3 thou/uL (1.20-3.40); #Neutrophils 6.7 thou/uL (1.40-6.50); %Basophils 0.1 % (0.0-1.0); %Eosinophils 3.5 % (0.0-10.0); %Lymphocytes 14.2 % (21.0-51.0); %Monocytes 10.2 % (0.0-10.0); Hemoglobin 9.2 g/dL (14.0-18.0); Mean Corpuscular HGB CONC 34.7 g/dL (32.0-36.0); Mean Corpuscular Hemoglobin 32.6 pg (27.0-31.0); Mean Platelet Volume 7.6 fL (7.4-10.4); Platelet Count 137 10x3/uL (130-400); RBC Distribution Width 13.4 % (11.5-14.5); Red Blood Cell (RBC) Count 2.84 mill/uL (4.70-6.10); White Blood Cell (WBC) Count 9.4 10x3/uL (4.8-10.8)
[2022-08-27] MEDS: Metoprolol Tartrate 25 MG TAB PO SCH (09:16)
[2022-08-27] MEDS: pyridOXINE 50 MG (B6) TAB PO SCH (09:16)
[2022-08-27] MEDS: Thiamine HCl 200 MG/2 ML VIAL SLOW IVP SCH (09:16)
[2022-08-27] MEDS: Pantoprazole 40 MG VIAL IVP SCH (09:17)
[2022-08-27 10:32] VITALS: BP 140/68; TEMP 98.1
[2022-08-28] MEDS ORDERED: Thiamine 100 MG TAB PO SCH (09:00)
== END 2022-08-27 11:30 | disposition home or self-care (01) | DRG 380 ==
LOC: ERS 23:09 → IMCU/EMU 08-22 02:10 → NEURO 08-24 17:15 → 2NO 08-26 18:26
PROVIDERS: ADMIT Student in an Organized Health Care Education/Training Program; ATTEND Hospitalist
PROC: 02HV33Z Insertion of Infusion Device into Superior Vena Cava, Percutaneous Approach (ICD-10-PCS; 2022-08-21)
PROC: 30233N1 Transfusion of Nonautologous Red Blood Cells into Peripheral Vein, Percutaneous Approach (ICD-10-PCS; principal; 2022-08-22)
PROC: 0DJ08ZZ Inspection of Upper Intestinal Tract, Via Natural or Artificial Opening Endoscopic (ICD-10-PCS; 2022-08-23)
PROC: 0DJD8ZZ Inspection of Lower Intestinal Tract, Via Natural or Artificial Opening Endoscopic (ICD-10-PCS; 2022-08-25)
DX: K22.11 Ulcer of esophagus with bleeding (principal); J96.01 Acute respiratory failure with hypoxia; D62 Acute posthemorrhagic anemia; E87.20 Acidosis, unspecified; R65.10 Systemic inflammatory response syndrome (SIRS) of non-infectious origin without acute organ dysfunction; I10 Essential (primary) hypertension; K64.8 Other hemorrhoids; K57.30 Diverticulosis of large intestine without perforation or abscess without bleeding; K44.9 Diaphragmatic hernia without obstruction or gangrene; I08.1 Rheumatic disorders of both mitral and tricuspid valves; I71.43 Infrarenal abdominal aortic aneurysm, without rupture; E87.6 Hypokalemia; F10.20 Alcohol dependence, uncomplicated; D69.6 Thrombocytopenia, unspecified; Z96.651 Presence of right artificial knee joint; E78.5 Hyperlipidemia, unspecified; Z79.899 Other long term (current) drug therapy; Z86.73 Personal history of transient ischemic attack (TIA), and cerebral infarction without residual deficits; Z87.891 Personal history of nicotine dependence; Z79.02 Long term (current) use of antithrombotics/antiplatelets; K21.01 Gastro-esophageal reflux disease with esophagitis, with bleeding
CPT/HCPCS: 36415; 36430; 36556; 70450; 71045; 74177; 80048; 80053; 80306; 80307; 81003; 82140; 82274; 82550; 82553; 83605; 83690; 83735; 83880; 84100; 84443; 84484; 85014; 85018; 85025; 85046; 85060; 85379; 85610; 85730; 86140; 86850; 86900; 86901; 87040; 93005; 93306; 96365; 96367; 96374; 96375; C9113; J0692; J2354; J2405; J2704; J3370-JW; J3411; J3480; J3490; J7050; P9016; Q9967

== ENCOUNTER 2022-09-13 10:30 | Inpatient (IN) | payer MEDICARE ==
[2022-09-13 10:53] VITALS: BMI 25.1
[2022-09-13 11:59] LABS: Hemoglobin 10.5 g/dL (13.5-17.5); Mean Corpuscular HGB CONC 32.5 g/dL (32.0-36.0); Mean Corpuscular Hemoglobin 29.7 pg (27.0-33.0); Mean Corpuscular Volume 91.2 fl (81.2-95.1); Mean Platelet Volume 8.7 fl (7.4-10.4); Platelet Count 223 10x3/uL (150-450); RBC Distribution Width 13.7 % (11.5-14.5); Red Blood Cell (RBC) Count 3.54 10x6/uL (4.32-5.72); White Blood Cell (WBC) Count 5.6 10x3/uL (3.5-10.5)
[2022-09-13 12:12] LABS: Anion Gap 13 mmol/L (10-20); BUN (Urea Nitrogen) 16 mg/dL (8.4-25.7); Calc. Creatinine Clearance 0 mL/min (70-130); Calcium 9.2 mg/dL (7.8-10.44); Carbon Dioxide 26 mmol/L (23-31); Chloride 105 mmol/L (98-107); Estimated GFR 87; Glucose 93 mg/dL (83-110); Potassium 4.4 mmol/L (3.5-5.1); Sodium 140 mmol/L (136-145)
[2022-09-14] MEDS ORDERED: Heparin 10,000 UNITS/ 10 ML VIAL ONE (06:36)
[2022-09-14] MEDS ORDERED: Midazolam HCl 2 mg/2 ml Vial ONE (06:46)
[2022-09-14] MEDS ORDERED: fentaNYL PF 100 MCG/2 ML SYRINGE ONE (06:46)
[2022-09-14] MEDS ORDERED: Bupivacaine HCl 0.5%/Epinephrine 1:200,000/PF 30 ml Vial ONE (07:04)
[2022-09-14] MEDS ORDERED: Ondansetron ODT 4 MG TAB ONE (07:06)
[2022-09-14] MEDS ORDERED: Lidocaine 1% PF 5 ML VIAL ONE ×2 (07:06→07:33)
[2022-09-14] MEDS ORDERED: CEFAZOLIN 2 GM VIAL ONE (07:17)
[2022-09-14] MEDS ORDERED: Sodium Chloride 0.9% 100 ML ONE (07:17)
[2022-09-14] MEDS ORDERED: Rocuronium Bromide 10 MG/ML (10ML VIAL) ONE (07:33)
[2022-09-14] MEDS ORDERED: NEOSTIGMINE 3 MG/3 ML SYR 3 MG/3 ML SYRINGE ONE (07:33)
[2022-09-14] MEDS ORDERED: PROPOFOL 200 MG/20 ML VIAL ONE (07:33)
[2022-09-14] MEDS ORDERED: Ondansetron PF 4 MG/2 ML Vial ONE (07:33)
[2022-09-14] MEDS ORDERED: GLYCOPYRROLATE/PF 0.2 MG/ML VIAL ONE (07:33)
[2022-09-14] MEDS ORDERED: Dexamethasone 20 MG/5 ML VIAL ONE (07:33)
[2022-09-14] MEDS ORDERED: Protamine Sulfate 50 MG/5 ML VIAL ONE (08:37)
[2022-09-14] MEDS ORDERED: Fentanyl 250 MCG/5 ML VIAL ONE (09:02)
[2022-09-14] MEDS ORDERED: Ondansetron PF 4 MG/2 ML Vial IVP PRN (09:04)
[2022-09-14] MEDS ORDERED: Acetaminophen 325 MG TAB PO PRN (09:04)
[2022-09-14] MEDS ORDERED: Promethazine HCl 25 MG/ML VIAL IM PRN (09:04)
[2022-09-14] MEDS ORDERED: Phenylephrine 40 MG/NS 250 ML 40 MG in Premix Bag 1 BAG IVPB PRN (09:04)
[2022-09-14] MEDS ORDERED: Nitroglycerin 50 MG/250 ML BOT 250 ML IVPB PRN (09:04)
[2022-09-14] MEDS ORDERED: fentaNYL 50 mcg/mL 1 mL Vial SLOW IVP PRN ×2 (09:04)
[2022-09-14] MEDS ORDERED: traMADol HCl 50 MG TAB PO PRN ×2 (09:04)
[2022-09-14] MEDS ORDERED: Promethazine HCl 25 MG/ML VIAL ONE (09:08)
[2022-09-14] MEDS ORDERED: hydrALAZINE 20 MG/ML VIAL ONE (10:15)
[2022-09-14] MEDS: hydrALAZINE 20 MG/ML VIAL SLOW IVP PRN ×2 (10:15→23:35)
[2022-09-14] MEDS ORDERED: Nitroglycerin 50 MG/250 ML BOT 250 ML ONE (10:22)
[2022-09-14] MEDS: Sodium Chloride 0.9% 1,000 ML IV SCH ×2 (10:52→20:26)
[2022-09-14] MEDS: CEFAZOLIN 2 GM in Sodium Chloride 0.9% 100 ML IVPB SCH ×2 (15:29→23:36)
[2022-09-14] MEDS: Metoprolol Tartrate 25 MG TAB PO SCH (20:25)
[2022-09-15 02:20] VITALS: TEMP 97.7
[2022-09-15] MEDS: CEFAZOLIN 2 GM in Sodium Chloride 0.9% 100 ML IVPB SCH (06:15)
[2022-09-15] MEDS: Sodium Chloride 0.9% 1,000 ML IV SCH (06:38)
[2022-09-15 07:08] LABS: #Lymphocytes 1.5 thou/uL (1.20-3.40); #Monocytes 0.8 thou/uL (0.11-0.59); #Neutrophils 6.4 thou/uL (1.40-6.50); %Basophils 0.4 % (0.0-1.0); %Eosinophils 0.3 % (0.0-10.0); %Lymphocytes 17.3 % (21.0-51.0); %Monocytes 9.5 % (0.0-10.0); %Neutrophils 72.6 % (42.0-75.0); Hemoglobin 9.9 g/dL (14.0-18.0); Mean Corpuscular HGB CONC 33.8 g/dL (32.0-36.0); Mean Corpuscular Hemoglobin 31.5 pg (27.0-31.0); Mean Corpuscular Volume 93.3 fl (78.0-98.0); Mean Platelet Volume 6.8 fL (7.4-10.4); Platelet Count 202 10x3/uL (130-400); RBC Distribution Width 13.9 % (11.5-14.5); Red Blood Cell (RBC) Count 3.14 mill/uL (4.70-6.10); White Blood Cell (WBC) Count 8.7 10x3/uL (4.8-10.8)
[2022-09-15 07:18] LABS: Anion Gap 14 mmol/L (10-20); BUN (Urea Nitrogen) 14 mg/dL (8.4-25.7); Calc. Creatinine Clearance 80 mL/min (70-130); Calcium 8.9 mg/dL (7.8-10.44); Carbon Dioxide 23 mmol/L (23-31); Chloride 109 mmol/L (98-107); Estimated GFR 86; Glucose 102 mg/dL (83-110); Potassium 3.7 mmol/L (3.5-5.1); Sodium 142 mmol/L (136-145)
[2022-09-15] MEDS: Metoprolol Tartrate 25 MG TAB PO SCH (08:28)
[2022-09-15 08:29] VITALS: BP 138/71
[2022-09-15] MEDS ORDERED: Amlodipine 10 MG TAB PO SCH (09:00)
[2022-09-15] MEDS ORDERED: Atorvastatin Calcium 10 MG TAB PO SCH (09:00)
[2022-09-15] MEDS ORDERED: Aspirin Chewable 81 MG TAB PO SCH (09:00)
[2022-09-15] MEDS ORDERED: Metoprolol Tartrate 25 MG TAB PO SCH (09:00)
== END 2022-09-15 09:46 | disposition home or self-care (01) | DRG 269 ==
LOC: SURG A 09-14 05:43 → CCU 09-14 10:02
PROVIDERS: ADMIT Thoracic Surgery (Cardiothoracic Vascular Surgery); ATTEND Thoracic Surgery (Cardiothoracic Vascular Surgery)
PROC: 04V03DZ Restriction of Abdominal Aorta with Intraluminal Device, Percutaneous Approach (ICD-10-PCS; principal; 2022-09-14)
DX: I71.40 Abdominal aortic aneurysm, without rupture, unspecified (principal); I10 Essential (primary) hypertension; K21.9 Gastro-esophageal reflux disease without esophagitis; N43.3 Hydrocele, unspecified; Z79.899 Other long term (current) drug therapy; Z79.82 Long term (current) use of aspirin
CPT/HCPCS: 36415; 80048; 85025; 85027; 86850; 86900; 86901; C1726; C1769; J0360; J1100; J1642; J1644; J2250; J2405; J2550; J2704; J2720; J3010; J3490; J7050; Q0162

== ENCOUNTER 2023-01-17 08:33 | Outpatient (CLI) | payer MEDICARE ==
[2023-01-17] MEDS ORDERED: Iopamidol 370 76% 100 ML VIAL ONE (09:05)
== END 2023-01-17 08:34 | disposition home or self-care (01) ==
LOC: CT 08:33
PROVIDERS: ATTEND Thoracic Surgery (Cardiothoracic Vascular Surgery)
DX: I71.40 Abdominal aortic aneurysm, without rupture, unspecified (principal); I72.2 Aneurysm of renal artery; N28.9 Disorder of kidney and ureter, unspecified; I72.3 Aneurysm of iliac artery; Z98.890 Other specified postprocedural states
CPT/HCPCS: 74174; 82565; Q9967